=== PATIENT | male | born 1950 | race Two or more races ===

== ENCOUNTER 2023-08-21 09:40 | Emergency (ER) | payer MEDICARE, MEDICAID ==
[~2023-08-21] VITALS: Ht 180.3 cm; Wt 79.5 kg
[~2023-08-21 09:40] MED LIST: HTN MEDS; PSYCH MEDS
[2023-08-21 09:44] VITALS: TEMP 97.9
[2023-08-21] MEDS: BACITRACIN 0.9 GM PACKET OINTMENT TP ONE (10:17)
[2023-08-21] MEDS: ACETAMINOPHEN/CODEINE 300-30 MG TABLET PO ONE (10:17)
[2023-08-21] MEDS: KETOROLAC TROMETHAMINE 60 MG/2 ML VIAL IM ONE (10:17)
[2023-08-21] MEDS: PERTUSS(ACELL),DIPH,TET/PF 0.5 ML SYRINGE [ADULT] IM. ONE (10:18)
[2023-08-21] MEDS ORDERED: IBUP-1554 PO (12:51)
[2023-08-21] MEDS ORDERED: ACET-2080 PO (12:51)
[2023-08-21] MEDS ORDERED: BACI28.410 TP (12:51)
[2023-08-21 13:15] VITALS: BP 112/65; PULSE 74; RESP 16
== END 2023-08-21 13:31 | disposition home or self-care (01) ==
LOC: EMS 09:40
DX: S52.532A Colles' fracture of left radius, initial encounter for closed fracture (principal); S60.812A Abrasion of left wrist, initial encounter; I10 Essential (primary) hypertension; W01.0XXA Fall on same level from slipping, tripping and stumbling without subsequent striking against object, initial encounter; Y93.89 Activity, other specified; Y92.89 Other specified places as the place of occurrence of the external cause; Y99.8 Other external cause status
CPT/HCPCS: 25605; 73100; 73110; 90715; 90471; 99284; 96372; J1885

== ENCOUNTER 2023-08-22 13:44 | Emergency (ER) | payer MEDICARE, MEDICAID ==
[~2023-08-22] VITALS: Ht 180.3 cm; Wt 84.0 kg
[~2023-08-22 13:44] MED LIST changes: +ACET-2080 PO; +BACI28.410 TP; +IBUP-1554 PO
[2023-08-22] MEDS: KETOROLAC TROMETHAMINE 30 MG/ML VIAL IM ONE (15:42)
[2023-08-22 16:01] VITALS: BP 141/76; PULSE 81; RESP 16; TEMP 97.9
== END 2023-08-22 16:09 | disposition home or self-care (01) ==
LOC: EMS 13:44
DX: S52.532A Colles' fracture of left radius, initial encounter for closed fracture (principal); F41.9 Anxiety disorder, unspecified; F31.9 Bipolar disorder, unspecified; I10 Essential (primary) hypertension; Z98.890 Other specified postprocedural states; X58.XXXA Exposure to other specified factors, initial encounter; Y93.89 Activity, other specified; Y92.89 Other specified places as the place of occurrence of the external cause; Y99.8 Other external cause status
CPT/HCPCS: 99283; 29125; 96372; J1885

== ENCOUNTER 2024-04-24 15:26 | Emergency (ER) | payer MEDICARE, MEDICAID ==
[~2024-04-24] VITALS: Ht 177.8 cm; Wt 95.5 kg
[2024-04-24] MEDS ORDERED: ATOR40TA28 PO (15:45)
[2024-04-24 15:47] VITALS: TEMP 98.8
[2024-04-24 17:09] VITALS: BP 187/100; PULSE 55; RESP 18; O2SAT 97
[2024-04-24] MEDS ORDERED: DOXY-354 PO (17:27)
[2024-04-24] MEDS: AmLODIPine BESYLATE 5 MG TABLET PO ONE (17:28)
[2024-04-24] MEDS: DOXYCYCLINE HYCLATE 100 MG TABLET PO ONE (17:28)
== END 2024-04-24 17:41 | disposition home or self-care (01) ==
LOC: EMS 15:26
DX: L08.9 Local infection of the skin and subcutaneous tissue, unspecified (principal); I10 Essential (primary) hypertension; F31.9 Bipolar disorder, unspecified; Z79.899 Other long term (current) drug therapy
CPT/HCPCS: 99283

== ENCOUNTER 2024-05-07 15:23 | Emergency (ER) | payer MEDICARE, MEDICAID ==
[~2024-05-07] VITALS: Ht 180.3 cm; Wt 100.0 kg
[~2024-05-07 15:23] MED LIST changes: +ATOR40TA28 PO; +DOXY-354 PO; -IBUP-1554 PO
[2024-05-07 15:29] VITALS: BP 171/84; PULSE 50; RESP 16; TEMP 97.9; O2SAT 100
[2024-05-07] MEDS: BACITRACIN 28 GM OINTMENT TP ONE (16:58)
== END 2024-05-07 17:07 | disposition home or self-care (01) ==
LOC: EMS 15:23
DX: S81.802A Unspecified open wound, left lower leg, initial encounter (principal); I10 Essential (primary) hypertension; F31.9 Bipolar disorder, unspecified; Z79.899 Other long term (current) drug therapy; X58.XXXA Exposure to other specified factors, initial encounter; Y93.89 Activity, other specified; Y92.89 Other specified places as the place of occurrence of the external cause; Y99.8 Other external cause status
CPT/HCPCS: 99282; Z7502; Z7610